=== PATIENT | female | born 1945 | race Caucasian/White ===

== ENCOUNTER 2016-07-11 14:20 | Outpatient (CLI) | payer MEDICARE ==
--- NOTE | 2016-07-11 16:32 | XRAY Report ---
LEFT HIP AND PELVIS: 07/11/2016 CLINICAL INDICATION: Pain, decreased range of motion. COMPARISON: 11/30/2014. FINDINGS: Frontal view of the hips and pelvis and frogleg lateral view of the left hip demonstrate m ild osteoarthritis, stable. There is no evidence of interval fracture or dislocation. No radiopaque f oreign body is seen in the soft tissues. IMPRESSION: STABLE MILD OSTEOARTHRITIS. JOB #: [id number] EXT JOB #:[id number]
== END 2016-07-11 14:21 | disposition home or self-care (01) ==
LOC: DI.S 14:20
PROVIDERS: ATTEND Physician Assistant
DX: M16.12 Unilateral primary osteoarthritis, left hip (principal)

== ENCOUNTER 2017-05-19 08:37 | Outpatient (CLI) | payer MEDICARE ==
--- NOTE | 2017-05-19 11:57 | XRAY Report ---
LEFT HIP AND PELVIS: 05/19/2017 CLINICAL INDICATION: Pain, decreased range of motion. COMPARISON: 07/11/2016. FINDINGS: Frontal view of the hips and pelvis and frogleg lateral view of the hip demonstrate stable mild osteoarthritis. There is no evidence of interval fracture or dislocation. No radiopaque foreign body is seen in the soft tissues. IMPRESSION: STABLE LEFT HIP OSTEOARTHRITIS. TD: 05/19/2017 11:56
--- NOTE | 2017-05-19 12:16 | XRAY Report ---
THREE VIEW LEFT KNEE: 05/19/2017 CLINICAL INDICATION: Pain, decreased range of motion. COMPARISON: 05/07/2010. FINDINGS: AP, lateral, sunrise views of the left knee demonstrate mild osteoarthritis, with joint space narrowing and small osteophytes. There is no evidence of fracture or dislocation. No effusion is present. IMPRESSION: MILD OSTEOARTHRITIS. TD: 05/19/2017 12:15
== END 2017-05-19 08:38 | disposition home or self-care (01) ==
LOC: DI.S 08:37
PROVIDERS: ATTEND Physician Assistant
DX: M17.12 Unilateral primary osteoarthritis, left knee (principal); M16.12 Unilateral primary osteoarthritis, left hip

== ENCOUNTER 2017-06-08 10:25 | Outpatient (CLI) | payer MEDICARE ==
--- NOTE | 2017-06-08 15:42 | DEXA Report ---
DEXA SCAN: 06/08/2017 CLINICAL INDICATION: Postmenopausal. TECHNIQUE: Dual energy x-ray absorptiometry (DXA) was performed on a [employer] system. Regions measured are the AP spine, femoral neck, and, if needed, forearm. COMPARISON: None. In accordance with the International Society for Clinical Densitometry (ISCD) guidelines, data from previous exams may be reanalyzed using current recommendations and techniques. This is done to allow a more accurate basis for comparison with the current study. FINDINGS Data for the lumbar spine is as follows: REGION BMD (g/cm/cm) T-SCORE Z-SCORE L1 1.068 -0.5 1.4 L2 1.130 -0.6 1.3 L3 1.133 -0.6 1.3 L4 1.104 -0.8 1.1 L1-L4 1.110 -0.6 1.3 NOTE: All evaluable vertebrae are used for classification. Data for the hip is as follows: REGION BMD (g/cm/cm) T-SCORE Z-SCORE Neck 0.740 -2.1 -0.3 TOTAL 0.795 -1.7 0.0 NOTE: The femoral neck or total proximal femur, whichever is lowest, is used for classification. IMPRESSION WHO CLASSIFICATION BASED ON THE INTERNATIONAL REFERENCE STANDARD IS OSTEOPENIA. FRACTURE RISK IS INCREASED. RECOMMENDATION: Patients with diagnosis of osteoporosis or osteopenia should have regular bone mineral density assessment. For those eligible for Medicare, routine testing is allowed once every 2 years. Testing frequency can be increased for patients who have rapidly progressing disease or for those who are receiving medical therapy to restore bone mass. COMMENT World Health Organization (WHO) definitions for osteoporosis and osteopenia: NORMAL BMD: T-score at 1.0 or higher, fracture risk is low. OSTEOPENIA BMD: T-score between 1.0 and -2.5, fracture risk is increased. OSTEOPOROSIS BMD: T-score at 2.5 or lower, fracture risk high. National Osteoporosis Foundation recommends: 1. Obtain adequate dietary calcium (at least 1200 mg per day) and vitamin D (400 -800 international units per day). 2. Participate, as appropriate, in regular weightbearing and muscle- strengthening exercise. 3. Avoid tobacco use and reduce alcohol and caffeine intake. 4. For more detailed information see the website at www.NOF.org. TD: 06/08/2017 12:49 REGLA
== END 2017-06-08 10:26 | disposition home or self-care (01) ==
LOC: DI 10:25
PROVIDERS: ATTEND Physician Assistant
DX: M85.88 Other specified disorders of bone density and structure, other site (principal)
CPT/HCPCS: 77080

== ENCOUNTER 2017-07-10 13:12 | Outpatient (CLI) | payer MEDICARE ==
--- NOTE | 2017-07-14 17:26 | Mammography Report ---
DIGITAL SCREENING MAMMOGRAM: 07/10/2017 CLINICAL INDICATION: A 72-year-old for screening. COMPARISON: 07/2015, 02/2014. TECHNIQUE: Routine CC and MLO projections were obtained of the breasts. FINDINGS: The breasts demonstrate heterogeneously dense fibroglandular parenchyma bilaterally. Coarse and punctate, typically benign calcifications are present. No suspicious masses, clustered microcalcifications, or regions of architectural distortion are identified. IMPRESSION: BENIGN FINDINGS. RECOMMENDATION: Routine annual screening unless otherwise clinically indicated. BI-RADS category 2 benign findings. STANDARD QUALIFYING STATEMENTS 1. This examination was reviewed with the aid of Computed-Aided Detection (CAD). 2. A negative or benign imaging report should not delay biopsy if clinically suspicious findings are present. Consider surgical consultation if warranted. More than 5% of cancers are not identified by imaging. 3. Dense breasts may obscure an underlying neoplasm. TD: 07/14/2017 15:09
== END 2017-07-10 13:13 | disposition home or self-care (01) ==
LOC: DI.S 13:12
PROVIDERS: ATTEND Physician Assistant
DX: Z12.31 Encounter for screening mammogram for malignant neoplasm of breast (principal)
CPT/HCPCS: 77067

== ENCOUNTER 2017-07-12 17:00 | Outpatient (CLI) | payer MEDICARE | END 2017-07-12 17:01 | disposition home or self-care (01) | LOC: LAB.R 17:00 | PROVIDERS: ATTEND Surgery | DX: R19.5 Other fecal abnormalities (principal) | CPT/HCPCS: 82270 ==

== ENCOUNTER 2018-06-11 13:17 | Outpatient (CLI) | payer MEDICARE ==
--- NOTE | 2018-06-11 14:38 | XRAY Report ---
Reason: PAIN IN LEFT HIP Procedure Date: 06/11/2018 Accession Number: [id number] / [id number] Procedure: XR - Hip w/Pelvis 2-3V LT CPT Code: FULL RESULT: EXAM: LEFT HIP RADIOGRAPHY EXAM DATE: 06/11/2018 02:16 PM. CLINICAL HISTORY: PAIN IN LEFT HIP. COMPARISON: HIP 2 VIEW LT 11/30/2014 2:44 PM. TECHNIQUE: 2 views. FINDINGS: Bones: Normal. No fractures or bone lesion. Joints: No significant osteoarthritis. Soft Tissues: Normal. No soft tissue swelling. IMPRESSION: Normal hip radiography. RADIA
--- NOTE | 2018-06-11 14:40 | XRAY Report ---
Reason: PAIN IN LEFT HIP Procedure Date: 06/11/2018 Accession Number: [id number] / [id number] Procedure: XR - Lumbar Spine 2 View CPT Code: FULL RESULT: EXAM: LUMBOSACRAL SPINE RADIOGRAPHY EXAM DATE: 06/11/2018 01:42 PM. CLINICAL HISTORY: PAIN IN LEFT HIP. COMPARISONS: HIP W/PELVIS 2-3V LT 06/11/2018 1:41 PM. TECHNIQUE: 3 views. FINDINGS: Alignment: Mild S-shaped thoracolumbar scoliosis. Normal lumbar lordosis. Bones: Five gha-ozp-iunhcnm lumbar vertebral bodies are present. No fractures or bone lesions. Disks: Allowing for scoliosis, no evidence of disk height narrowing. No subluxation. Facets: Moderately severe bilateral L4-L5 facet arthropathy. Sacroiliac Joints: Unremarkable. Soft Tissues: Normal. The visualized bowel gas pattern is normal. IMPRESSION: 1. Mild S-shaped thoracolumbar scoliosis. 2. Compression fracture or significant degenerative disk disease. 3. Moderately severe bilateral L4-L5 facet arthropathy. RADIA
== END 2018-06-11 13:18 | disposition home or self-care (01) ==
LOC: DI 13:17
PROVIDERS: ATTEND Nurse Practitioner Family
DX: M47.9 Spondylosis, unspecified (principal); M41.9 Scoliosis, unspecified; M25.552 Pain in left hip
CPT/HCPCS: 72100

== ENCOUNTER 2022-03-27 11:55 | Outpatient (CLI) | payer MEDICARE ==
--- NOTE | 2022-03-27 14:49 | XRAY Report ---
PROCEDURE: Knee 3 View LT INDICATIONS: PAIN OF LEFT KNEE JOINT TECHNIQUE: 3 views of the left knee(s) were acquired. COMPARISON: None. FINDINGS: Bones: No fractures or dislocations. No suspicious bony lesions. There is moderate medial, mild la teral and vnqy-xo-zlnldyqv patellofemoral degenerative narrowing. Periarticular osteophytes are prese nt most severe medially. No erosions are identified. Soft tissues: No joint effusion. No suspicious soft tissue calcifications. IMPRESSION: Tricompartmental arthritic changes most severe medially. Reviewed by: Mariza Laura MD on 03/27/2022 2:48 PM PST Approved by: Mariza Laura MD on 03/27/2022 2:48 PM PST Station ID: [id number]
--- NOTE | 2022-03-27 14:51 | XRAY Report ---
PROCEDURE: Knee 3 View RT INDICATIONS: PAIN OF RIGHT KNEE JOINT TECHNIQUE: 3 views of the right knee(s) were acquired. COMPARISON: None. FINDINGS: Bones: No fractures or dislocations. No suspicious bony lesions. There is moderate medial, mild la teral and mild patellofemoral compartment narrowing. Very minimal appearance of periarticular osteoph ytes are present. No erosions. Soft tissues: No joint effusion. No suspicious soft tissue calcifications. IMPRESSION: Tricompartmental arthritic change most severe medially. Reviewed by: Mariza Laura MD on 03/27/2022 2:50 PM PST Approved by: Mariza Laura MD on 03/27/2022 2:50 PM PST Station ID: [id number]
== END 2022-03-27 11:56 | disposition home or self-care (01) ==
LOC: DI.S 11:55
PROVIDERS: ATTEND Nurse Practitioner Family
DX: M17.0 Bilateral primary osteoarthritis of knee (principal)

== ENCOUNTER 2023-01-28 09:54 | Outpatient (CLI) | payer MEDICARE | END 2023-01-28 09:55 | disposition short-term general hospital (02) | LOC: EMS 09:54 | DX: R10.84 Generalized abdominal pain (principal); R14.0 Abdominal distension (gaseous) | CPT/HCPCS: A0425; A0427 ==

== ENCOUNTER 2023-07-13 16:47 | Outpatient (CLI) | payer MEDICARE ==
--- NOTE | 2023-07-14 20:49 | XRAY Report ---
PROCEDURE: Knee 4+V BL INDICATIONS: JOINT DISEASE TECHNIQUE: 4 views of the knee(s) were acquired. COMPARISON: 03/28/2022. FINDINGS: Bones: No fractures or dislocations. Moderate bilateral medial femoral tibial compartment osteoarthr itis is seen with significant joint space narrowing, subchondral sclerosis and marginal osteophyte fo rmation worse on the left side. Mild bilateral patellofemoral compartment and lateral femoral tibial compartment osteoarthritic changes also seen. No suspicious bony lesions. Soft tissues: Small bilateral knee joint effusion. No suspicious soft tissue calcifications or masses . IMPRESSION: No acute bony abnormality. Moderate left worse than right bilateral medial femoral tibial compartment osteoarthritis and mild osteoarthritis in bilateral patellofemoral compartment and lateral femoral t ibial compartment. Finding has progressed since 2022 study Small bilateral suprapatellar joint effusi on. Reviewed by: Dominick Swanson MD on 07/14/2023 8:48 PM PDT Approved by: Dominick Swanson MD on 07/14/2023 8:48 PM PDT Station ID: [id number]
== END 2023-07-13 16:48 | disposition home or self-care (01) ==
LOC: DI.S 16:47
PROVIDERS: ATTEND Physician Assistant Surgical
DX: M17.0 Bilateral primary osteoarthritis of knee (principal); M25.461 Effusion, right knee; M25.462 Effusion, left knee

== ENCOUNTER 2023-09-07 14:43 | Outpatient (CLI) | payer MEDICARE ==
[2023-09-07 20:26] LABS: ALBUMIN 4.5 g/dL (3.2-5.5); ALBUMIN/GLOBULIN RATIO 1.5 (1.0-2.2); BILIRUBIN,TOTAL 0.4 mg/dL (0.2-1.0); CALCIUM 10.2 mg/dL (8.5-10.3); CREATININE 0.8 mg/dL (0.6-1.3); POTASSIUM 3.1 mmol/L (3.5-4.5); TOTAL PROTEIN 7.6 g/dL (6.4-8.9)
== END 2023-09-07 14:44 | disposition home or self-care (01) ==
LOC: LAB.S 14:43
PROVIDERS: ATTEND Orthopaedic Surgery
DX: Z01.818 Encounter for other preprocedural examination (principal); M17.0 Bilateral primary osteoarthritis of knee
CPT/HCPCS: 36415; 80053; 82306; 83036

== ENCOUNTER 2023-09-09 10:46 | Outpatient (CLI) | payer MEDICARE ==
[2023-09-09 15:40] LABS: BASOPHILS # (AUTO) 0.1 10^3/uL (0.0-0.1); BASOPHILS % (AUTO) 1.7 %; EOSINOPHILS # (AUTO) 0.6 10^3/uL (0.0-0.7); EOSINOPHILS % (AUTO) 6.5 %; HCT - HEMATOCRIT 48.2 % (37.0-47.0); HGB - HEMOGLOBIN 15.6 g/dL (12.0-16.0); LYMPHOCYTES # (AUTO) 2.4 10^3/uL (1.5-3.5); LYMPHOCYTES % (AUTO) 28.4 %; MEAN CORPUSCULAR HEMOGLOBIN 29.2 pg (27.0-31.0); MEAN CORPUSCULAR HGB CONC 32.4 g/dL (32.0-36.0); MEAN CORPUSCULAR VOLUME 90.1 fL (81.0-99.0); MEAN PLATELET VOLUME 12.6 fL (7.9-10.8); MONOCYTES # (AUTO) 0.7 10^3/uL (0.0-1.0); MONOCYTES % (AUTO) 8.3 %; NEUTROPHILS # (AUTO) 4.7 10^3/uL (1.5-6.6); PLT - PLATELET COUNT 233 10^3/uL (130-450); RED BLOOD COUNT 5.35 10^6/uL (4.20-5.40); RED CELL DISTRIBUTION WIDTH 13.8 % (12.0-15.0); WHITE BLOOD COUNT 8.5 x10^3/uL (4.8-10.8)
[2023-09-09 21:44] LABS: ESTIMATED AVERAGE GLUCOSE 114 mg/dL (70-100); HEMOGLOBIN A1c% 5.6 % (4.27-6.07)
== END 2023-09-09 10:47 | disposition home or self-care (01) ==
LOC: LAB.S 10:46
PROVIDERS: ATTEND Orthopaedic Surgery
DX: Z01.812 Encounter for preprocedural laboratory examination (principal); M17.0 Bilateral primary osteoarthritis of knee
CPT/HCPCS: 36415; 83036; 85025

== ENCOUNTER 2023-09-16 06:26 | Day surgery (SDC) | payer MEDICARE ==
[~2023-09-16 06:26] MED LIST: DEXAMETHASONE 10 MG/ML VIAL ONE; PROPOFOL 200 MG/20 ML VIAL IVP ONE; PROPOFOL 500 MG/50 ML 500 MG/50 ML VIAL ONE; ceFAZolin 2 GM VIAL ONE
[2023-09-16] MEDS: LACTATED RINGERS 1,000 ML IV ONE (06:35)
[2023-09-16] MEDS ORDERED: VANCOMYCIN 1 GM VIAL ONE (06:46)
[2023-09-16] MEDS ORDERED: BUPIVACAINE 0.25% PF 30 ML VIAL ONE (06:46)
[2023-09-16] MEDS: ACETAMINOPHEN 500 MG TABLET PO ONE (06:47)
[2023-09-16] MEDS: CELECOXIB 100 MG CAPSULE PO ONE (06:47)
[2023-09-16] MEDS ORDERED: ATROPINE ABBOJECT 1 MG/10 ML SYRINGE IVP PRN (07:08)
[2023-09-16] MEDS ORDERED: ePHEDrine 50 MG/ML VIAL IVP PRN (07:08)
[2023-09-16] MEDS ORDERED: NALOXONE 0.4 MG/ML VIAL IVP PRN (07:08)
[2023-09-16] MEDS ORDERED: fentaNYL 100 MCG/2 ML VIAL IVP PRN (07:08)
[2023-09-16] MEDS ORDERED: HYDROmorphone 0.5 MG/0.5 ML SYRINGE IVP PRN (07:08)
[2023-09-16] MEDS ORDERED: ONDANSETRON 4 MG/2 ML VIAL IVP PRN ×2 (07:08→10:40)
--- NOTE | 2023-09-16 07:08 | ANESTHESIA ---
Pre-Anesthesia VS, & Labs - Diagnosis Bilateral knee osteoarthritis - Procedure Right total knee arthroplasty Height: 5 ft Weight (kg): 60.6 kg Body Mass Index: 26.1 BMI Classification: Overweight - Is Patient ?: No Home Medications and Allergies Home Medications: Ambulatory Orders Amlodipine Besylate [Norvasc] 10 mg PO DAILY 09/10/23 Cholecalciferol (Vitamin D3) [Vitamin D3] 50 mcg PO DAILY 09/10/23 Docusate Sodium 100Mg Capsule [Colace 100Mg Capsule] 100 mg PO BID 09/10/23 Gabapentin [Neurontin] 100 mg PO QPM 09/10/23 Losartan Potassium 100 mg PO DAILY 09/10/23 Rosuvastatin Calcium 20 mg PO QPM 09/10/23 Sertraline [Zoloft] 50 mg PO HS 09/10/23 hydroCHLOROthiazide [Hydrodiuril] 25 mg PO DAILY 09/10/23 oxyBUTYnin chloride [Oxybutynin Chloride] 5 mg PO DAILY 09/10/23 traZODone [Desyrel] 50 mg PO HS PRN 09/10/23 Potassium Chloride [Micro-K] 10 meq PO DAILY 09/16/23 Amlodipine Besylate [Norvasc] 10 mg PO DAILY 09/10/23 Cholecalciferol (Vitamin D3) [Vitamin D3] 50 mcg PO DAILY 09/10/23 Docusate Sodium 100Mg Capsule [Colace 100Mg Capsule] 100 mg PO BID 09/10/23 Gabapentin [Neurontin] 100 mg PO QPM 09/10/23 Losartan Potassium 100 mg PO DAILY 09/10/23 Rosuvastatin Calcium 20 mg PO QPM 09/10/23 Sertraline [Zoloft] 50 mg PO HS 09/10/23 hydroCHLOROthiazide [Hydrodiuril] 25 mg PO DAILY 09/10/23 oxyBUTYnin chloride [Oxybutynin Chloride] 5 mg PO DAILY 09/10/23 traZODone [Desyrel] 50 mg PO HS PRN 09/10/23 Potassium Chloride [Micro-K] 10 meq PO DAILY 09/16/23 Allergies/Adverse Reactions: Allergies Allergy/AdvReac Type Severity Reaction Status Date / Time codeine Allergy Mild Itching Verified 09/16/23 06:58 nitrofurantoin Allergy Mild Itching Verified 09/16/23 06:57 [From Macrobid] Anes History & Medical History - Medical History Cardiovascular: reports: Hypertension, High cholesterol Pulmonary: reports: None Gastrointestinal: reports: Other Urinary: reports: Incontinence Musculoskeletal: reports: Osteoarthritis, Gout, Other Endocrine/Autoimmune: reports: None Skin: reports: None - Surgical History General: reports: Cholecystectomy, Appendectomy, Bowel surgery, Colonoscopy Eyes Ears Nose Throat (EENT): reports: Cataracts Gynecologic: reports: Hysterectomy Exam General: Alert, Oriented x3, Cooperative Dental: WNL Mouth Openin Fingerbreadth Mallampati classification: II Thyromental Distance: greater than 6 cm Plan Anesthesia Type: General, Spinal Consent for Procedure(s) Verified and Reviewed: Yes Code Status: Attempt Resuscitation ASA classification: 2-Mild systemic disease Is this case an emergency?: No
[2023-09-16] MEDS ORDERED: TRANEXAMIC ACID 1,000 MG/10 ML VIAL ONE (08:00)
[2023-09-16] MEDS ORDERED: LACTATED RINGERS 1,000 ML IV SCH (08:00)
[2023-09-16] MEDS ORDERED: ePHEDrine 50 MG/ML VIAL IVP ONE (08:07)
[2023-09-16] MEDS ORDERED: PHENYLEPHRINE HCL 0.5 MG/5 ML AMPULE ONE (08:32)
[2023-09-16] MEDS ORDERED: PROPOFOL 500 MG/50 ML 500 MG/50 ML VIAL ONE (08:47)
[2023-09-16] MEDS: VANCOMYCIN 1 GM VIAL MC ONE (08:55)
[2023-09-16] MEDS: BUPIVACAINE 0.25% PF 30 ML VIAL SUBQ ONE (08:55)
[2023-09-16] MEDS ORDERED: KETOROLAC 15 MG/ML VIAL ONE (08:56)
[2023-09-16] MEDS: KETOROLAC 30 MG/ML VIAL IVP ONE (08:56)
--- NOTE | 2023-09-16 10:10 | OPERATIVE REPORT ---
Operative Report - General Procedure Date: 09/16/23 Planned Procedure: Right total knee arthroplasty Pre-Op Diagnosis: Varus osteoarthritis right knee Procedure Performed: Right total knee arthroplasty:[employer] journey 2 antibiotic cemented cruciate retaining total knee: #3 Oxinium femoral component, #2 tibial primary baseplate, 9 mm standard tibial bearing, 23 mm biconvex patellar component right knee Post Op Diagnosis: Same as preoperative diagnosis - Procedure Note Primary Surgeon: Louie Wisdom MD Secondary Surgeon: Leighann MORGAN Anesthesia Provider: Janis Valentine CRNA Anesthesia Technique: Spinal Estimated Blood Loss (mL): 100 Indications: This is a 78-year-old woman with chronic intermittent pain to her knees, right worse than left over the past couple years. Her pain is progressively worsened and has not responded to nonoperative treatment as has been documented in her clinic notes. She had localized pain mostly to the medial compartment with joint line tenderness, decreased motion, good strength and stability. Her routine radiographs showed loss of joint space to the medial compartment of the right knee [id number]. She has signed informed consent for right total knee replacement. She has attended joint camp and has been evaluated medically. Findings: There is a nonspecific synovitis about the right knee. There is no sign of infection. . There was a 5 to 10 degree flexion contracture to the right knee. The medial compartment was worn with a lateral compartment relatively spared. There was exposed bone to the medial compartment. There are patellofemoral osteophytes and tibiofemoral osteophytes. The cruciate ligaments are intact. Complications: None - Other Other Information/Narrative: The patient was brought to the operating room and was placed in a supine position. A lumbar spinal anesthetic was administered.The patient was placed supine on the operating room table. A pneumatic tourniquet was applied to the proximal right thigh over cast padding. This was a conical shaped Dorothy thigh tourniquet that was sterile. A Padded bump was placed on the operating room table to facilitate knee flexion of the right knee during surgery. . The colostomy was carefully excluded with a drape from the operative field A timeout procedure was performed by the entire operating room team and all were in agreement. A midline longitudinal incision was made with the knee in flexion. A medial parapatellar arthrotomy was made. The anterior horn of medial and lateral menisci were released and part of patellar fat pad was excised. The knee was flexed and the patella was dislocated laterally. A drill hole was made in the intramedullary notch with a 9.5 mm drill. Osteophytes about the proximal tibia and femur had been removed with a rongure. The distal femoral cutting guide was aligned parallel to the posterior condyles. The intramedullary lillie and guide was advanced and the distal femoral guide was stabilized with half pins. The distal 5 degrees valgus cut was made through the distal femoral guide Using a plus 2 mm cut as she had a flexion contracture Next the extra medullary tibial guide was assembled and applied and aligned to the mechanical axis in both sagittal and coronal planes. Tibial referencing was done to allow 3 mm of bone from the most affected side and 10 mm from the least affected side. The tibial guide was stabilized with half pins. Retractors were placed medially and laterally to protect the collateral ligaments and a retractor was placed directly against the posterior bone to sublux the tibia anteriorly. A Hi-Dis(Mosen) saw was used to make the tibial proximal cut. The tibial block was removed as a single piece and the menisci were removed as well. The extension gap was assessed with a extension block spacer using a 10 mm spacer and this was found to fit well as well as the 9 mm spacer block with the knee in 90 degrees of flexion. Next the femoral positioning guide was applied and aligned to the epicondylar axis and [place] line. This was secured in place with approximately 3 degrees of external rotation. The size of the femur at the anterior lateral trochlea was a #3. Drill holes were made in the 5 and 1 #3 cutting block was inserted and secured. The 5 cuts were made to the captured block using precision saw. The patella was then prepared. A 23 mm biconvex patellar reamer was used.Pre and post patellar reaming measurements were made of the thickness of the patella. The tibial trial #2 size was then applied to the tibia and aligned to the mechanical axis. The intramedullary drill and punch fin were utilized. Trial reduction was performed with the femoral and tibial components in place. Notch resection was then through the trial femoral component with precision saw. Pulsatile lavage was performed. A tourniquet was applied during the cementing process. [place] antibiotic impregnated cement was utilized. The components were inserted sequentially: Tibia, femur and lastly patellar component. Excess cement was removed and the knee was placed in extension during the hardening. Dilute Betadine irrigation was performed. The knee had full range of motion, good patellar tracking. There was good stability of the knee in full extension mid flexion and 90 degrees of flexion. There was good alignment of the right knee. The tourniquet had been deflated and had been in place for 20 minutes. Hemostasis was achieved with electrocautery. The deep closure was performed with #1 Stratofix suture to close the arthrotomy incision. 2-0 stratofix was used to close the subcutaneous tissue. 3-0 Monocryl was used to do a subcuticular skin closure. Dermabond was applied to the skin incision. After the Dermabond had hardened, a silver impregnated dressing was applied. The patient tolerated the procedure well and received 2 g of Ancef intravenously and 2 g of tranexamic acid.Irrisept irrigation was used intermittently throughout the procedure A physician pathologist assistant was used and felt to be medically necessary to provide retraction, protection of vital structures, exposure, skin closure and dressing.
[2023-09-16] MEDS: LACTATED RINGERS 750 ML IV ONE (10:31)
[2023-09-16] MEDS ORDERED: DOCUSATE SODIUM 100 MG CAPSULE PO PRN (10:40)
[2023-09-16] MEDS ORDERED: fentaNYL 250 MCG/5 ML VIAL IVP PRN (10:40)
[2023-09-16] MEDS ORDERED: SODIUM CHLORIDE FLUSH 0.9% 10 ML SYRINGE IVP PRN (10:40)
--- NOTE | 2023-09-16 11:17 | XRAY Report ---
PROCEDURE: Knee 1-2V RT INDICATIONS: post operative imaging TECHNIQUE: 2 views of the knee(s) were acquired. COMPARISON: 07/13/2023. FINDINGS: Bones: Expected immediate postoperative appearance, status post total right knee arthroplasty. No paez spicious bony lesions. Soft tissues: Expected postoperative air in the joint. No suspicious soft tissue calcifications or ma sses. IMPRESSION: Expected postoperative appearance. Reviewed by: Willis Mukherjee MD on 09/16/2023 11:16 AM PDT Approved by: Willis Mukherjee MD on 09/16/2023 11:16 AM PDT Station ID: [id number]
--- NOTE | 2023-09-16 11:21 | ANESTHESIA POST OP EVALUATION ---
Anesthesia Post Eval - Post Anesthesia Eval Vitals: Last Vital Signs Temp 36.0 C L 09/16/23 10:31 Pulse 59 L 09/16/23 11:05 Resp 18 09/16/23 11:05 BP 125/64 09/16/23 11:05 Pulse Ox 100 09/16/23 11:05 O2 Flow Rate CV Function Including HR & BP: Stable Pain Control: Satisfactory Nausea & Vomiting: Negative Mental Status: Baseline Respiratory Status: Airway Patent Hydration Status: Satisfactory Anesthesia Complications: None
[2023-09-16] MEDS: ACETAMINOPHEN 500 MG TABLET PO SCH (11:35)
[2023-09-16] MEDS: NS W/20 MEQ KCL 1,000 ML IV SCH (11:35)
[2023-09-16] MEDS: traMADol 50 MG TABLET PO SCH (11:35)
[2023-09-16] MEDS: dexAMETHasone 4 MG TABLET PO ONE (11:35)
[2023-09-16] MEDS: oxyCODONE 5 MG TABLET PO PRN (12:37)
[2023-09-16] MEDS: ceFAZolin (2G) 2 GM in SODIUM CHLORIDE 0.9% MINIBAG 100 ML IV SCH (14:08)
[2023-09-16] MEDS: SODIUM CHLORIDE FLUSH 0.9% 10 ML SYRINGE IVP SCH (17:01)
[2023-09-16] MEDS: CELECOXIB 100 MG CAPSULE PO SCH (20:41)
[2023-09-16] MEDS: ethyl alcohoL 62% SWAB AMPULE NAS SCH (20:41)
[2023-09-17] MEDS: ASPIRIN EC 81 MG TABLET PO SCH (08:11)
[2023-09-17 08:29] VITALS: BP 139/70; O2SAT 98
== END 2023-09-17 12:05 | disposition home or self-care (01) ==
LOC: SDS 06:26 → MS2 10:45 → SDS 09-17 12:05
PROVIDERS: ATTEND Orthopaedic Surgery
DX: M17.0 Bilateral primary osteoarthritis of knee (principal); I10 Essential (primary) hypertension; Z93.3 Colostomy status
CPT/HCPCS: 27447; 73560; 97162; 97166; A9270; C1713; J2372; J3370; J7120

== ENCOUNTER 2023-10-28 09:17 | Outpatient (CLI) | payer MEDICARE ==
--- NOTE | 2023-10-28 16:39 | XRAY Report ---
PROCEDURE: Knee 4+V RT INDICATIONS: TOTAL KNEE ARTHROPLASTY, RIGHT TECHNIQUE: 4 views of the knee(s) were acquired. COMPARISON: 09/16/2023 FINDINGS: Bones: No fractures or dislocations. Stable appearance of right knee arthroplasty. The hardware appe ars intact without surrounding fracture lucency. Moderate degenerative changes of the left knee, most pronounced within the medial compartment. No suspicious bony lesions. Soft tissues: Small knee joint effusion. No suspicious soft tissue calcifications or masses. IMPRESSION: 1.No acute bony abnormality. 2.Stable appearance of right knee arthroplasty without evidence of interval complication. 3.Moderate degenerative changes of the left knee, most pronounced in the medial compartment. Reviewed by: Osmar Goncalves MD on 10/28/2023 4:38 PM PDT Approved by: Osmar Goncalves MD on 10/28/2023 4:38 PM PDT Station ID: [id number]
== END 2023-10-28 09:18 | disposition home or self-care (01) ==
LOC: DI.S 09:17
PROVIDERS: ATTEND Orthopaedic Surgery
DX: M17.12 Unilateral primary osteoarthritis, left knee (principal); Z96.651 Presence of right artificial knee joint